=== PATIENT | male | born 1985 | race Caucasian/White ===

== ENCOUNTER → 2023-01-25 | Outpatient (CLI) | payer BC ==
--- NOTE | 2023-01-25 14:41 | CT ---
EXAMINATION TYPE: CT heart w calcium score DATE OF EXAM: 01/25/2023 COMPARISON: None. HISTORY: Screening for cardiovascular disorder. 213.9 CT DLP: 91.5 mGycm Automated exposure control for dose reduction was used. CT CALCIUM SCORING Coronary calcium is a marker for plaque (fatty deposits) in a blood vessel or atherosclerosis (harden ing of the arteries). The presence and amount of calcium detected in a coronary artery by the CT sca n, indicates the presence and amount of atherosclerotic plaque. These calcium deposits appear years before the development of heart disease symptoms such as chest pain and shortness of breath. A calcium score is computed for each of the coronary arteries based upon the volume and density of th e calcium deposits. This can be referred to as your calcified plaque burden. It does not correspond directly to the percentage of narrowing in the artery but does correlate with the severity of the un derlying coronary atherosclerosis. PROCEDURE TECHNIQUE - Prospective Gating was used. Slice thickness: 3mm. Density threshold (HU): 130, Pixel threshold: 3, Algorithm: discrete. RESULTS Region: LM Calcium Score ([place]): 0 Volume (mm3): 0 Mass (g): 0 Region: RCA Calcium Score ([place]): 0 Volume (mm3): 0 Mass (g): 0 Region: LAD Calcium Score ([place]): 6.29 Volume (mm3): 10.54 Mass (g): 3.51 Region: CX Calcium Score ([place]): 0 Volume (mm3): 0 Mass (g): 0 Region: PDA Calcium Score ([place]): 0 Volume (mm3): 0 Mass (g): 0 Total: Calcium Score ([place]): 6.29 Volume (mm3): 10.54 Mass (g): 3.51 Incidental findings: Slightly elevated left hemidiaphragm. Mild left lower lobe and lingular linear s carring and/or atelectasis IMPRESSION: Calcium Score: 1-10 Implication: Minimal identifable plaque. Risk of Coronary Artery Disease: Very unlikely, less than 10%. CALCIUM SCORE IMPLICATION RISK OF C ORONARY ARTERY DISEASE 0 No identifiable plaque Very low, generally less than 5% 1-10 Minimal identifiable plaque Very unlikely, less than 10% 11-100 Definite, at least mild atherosclerotic plaque Mild or m inimal coronary narrowings likely 101-400 Definite, at least moderate atherosclerotic plaque Mild coronary ar laure disease highly likely, significant narrowing possible 401 or Higher Extensive atherosclerotic plaque High lik elihood of at least one significant coronary narrowing
== END | disposition home or self-care (01) ==
LOC: RADCTMAIN 13:48
PROVIDERS: ATTEND Family Medicine
DX: I25.10 Atherosclerotic heart disease of native coronary artery without angina pectoris (principal); E78.5 Hyperlipidemia, unspecified
CPT/HCPCS: 75571

== ENCOUNTER 2024-03-13 15:37 | Emergency (ER) | payer BC ==
[2024-03-13 15:41] VITALS: TEMP 97.9
--- NOTE | 2024-03-13 16:00 | ED ---
Chest Pain HPI - General Chief Complaint: Chest Pain Stated Complaint: Chest Pain,Sob Time Seen by Provider: 03/13/24 15:49 Source: patient, RN notes reviewed, old records reviewed Mode of arrival: wheelchair Limitations: no limitations - History of Present Illness Initial Comments: This is a 38-year-old male to ER for evaluation of chest pain today. Patient has persistent chest pain here in the emergency department but no significant chest pain noted here. Patient has no travel history no sick contacts no trauma. No fevers cough or congestion. Patient been having chest pain for 2 days becoming concerning -: days(s) Onset: during rest, during exertion Pain Location: substernal, left chest Pain Radiation: none Severity: moderate Severity scale (1-10): 4 Quality: tightness, heaviness Consistency: constant Improves With: nothing Worsens With: nothing Anginal Symptoms: dyspnea, sense of impending doom Other Symptoms: palpitations Treatments Prior to Arrival: none - Related Data Home Medications Medication Instructions Recorded Confirmed Evolocumab [Repatha Sureclick] 140 mg SQ Q14D 03/13/24 03/13/24 Previous Rx's Medication Instructions Recorded Famotidine [Pepcid] 20 mg PO BID #60 tablet 03/15/24 Omeprazole [PriLOSEC] 20 mg PO AC-BRKFST #30 cap 03/15/24 Allergies Allergy/AdvReac Type Severity Reaction Status Date / Time No Known Allergies Allergy Verified 03/13/24 18:03 Review of Systems ROS Statement: Those systems with pertinent positive or pertinent negative responses have been documented in the HPI. ROS Other: All systems not noted in ROS Statement are negative. EKG Findings - EKG Comments: EKG Findings:: EKG is sinus 81 OK 139 QRS 90 QTc 387 - EKG Results: EKG: interpreted by ROSALVA Past Medical History Past Medical History: Hyperlipidemia History of Any Multi-Drug Resistant Organisms: None Reported Past Surgical History: No Surgical Hx Reported Past Psychological History: No Psychological Hx Reported Smoking Status: Never smoker Past Alcohol Use History: Occasional Past Drug Use History: None Reported General Exam Limitations: no limitations General appearance: alert, in no apparent distress Head exam: Present: atraumatic, normocephalic, normal inspection Eye exam: Present: normal appearance, PERRL, EOMI. Absent: scleral icterus, conjunctival injection, periorbital swelling ENT exam: Present: normal exam, mucous membranes moist Neck exam: Present: normal inspection. Absent: tenderness, meningismus, lymphadenopathy Respiratory exam: Present: normal lung sounds bilaterally. Absent: respiratory distress, wheezes, rales, rhonchi, stridor Cardiovascular Exam: Present: regular rate, normal rhythm, normal heart sounds. Absent: systolic murmur, diastolic murmur, rubs, gallop, clicks GI/Abdominal exam: Present: soft, normal bowel sounds. Absent: distended, tenderness, guarding, rebound, rigid Extremities exam: Present: normal inspection, full ROM, normal capillary refill. Absent: tenderness, pedal edema, joint swelling, calf tenderness Back exam: Present: normal inspection Neurological exam: Present: alert, oriented X3, CN II-XII intact Psychiatric exam: Present: normal affect, normal mood Skin exam: Present: warm, dry, intact, normal color. Absent: rash Course Vital Signs 03/13/24 03/13/24 03/13/24 15:39 15:52 17:41 Temperature 97.9 F Pulse Rate 80 86 88 Respiratory 22 16 16 Rate Blood Pressure 176/112 121/86 154/111 O2 Sat by Pulse 98 97 99 Oximetry 03/13/24 19:00 Temperature Pulse Rate 92 Respiratory 16 Rate Blood Pressure 157/110 O2 Sat by Pulse 97 Oximetry - Reevaluation(s) Reevaluation #1: Medical records reviewed Reevaluation #2: Patient symptoms unchanged Reevaluation #3: Patient informed of results questions answered Reevaluation #4: Was pt. sent in by a medical professional or institution (, PA, LABOR RELATIONS REPRESENTATIVE, urgent care, hospital, or jail...) When possible be specific @ -no Did you speak to anyone other than the patient for history (EMS, parent, family, police, friend...)? What history was obtained from this source @ -no Did you review nursing and triage notes (agree or disagree)? Why? @ -agree Are old charts reviewed (outside hosp., previous admission, EMS record, old EKG, old radiological studies, urgent care reports/EKG's, jail records)? Report findings @ -yes Differential Diagnosis (chest pain, altered mental status, abdominal pain women, abdominal pain men, vaginal bleeding, weakness, fever, dyspnea, syncope, headache, dizziness, GI bleed, back pain, seizure, CVA, palpatations, mental health, musculoskeletal)? @ -prior EKG interpreted by me (3pts min.). @ -yes X-rays interpreted by me (1pt min.). @ -yes negative for acute disease CT interpreted by me (1pt min.). @ -no U/S interpreted by me (1pt. min.). @ -no What testing was considered but not performed or refused? (CT, X-rays, U/S, labs)? Why? @ -none What meds were considered but not given or refused? Why? @ -none Did you discuss the management of the patient with other professionals (professionals i.e. Dr., PA, LABOR RELATIONS REPRESENTATIVE, lab, RT, psych nurse, manager social services, photoresist printer, teacher, youth liaison officer, caseworker protective services)? Give summary @ -no Was smoking cessation discussed for >3mins.? @ -no Was critical care preformed (if so, how long)? @ -no Were there social determinants of health that impacted care today? How? (Homelessness, low income, unemployed, alcoholism, drug addiction, transportation, low edu. Level, literacy, decrease access to med. care, assisted, rehab)? @ -none Was there de-escalation of care discussed even if they declined (Discuss DNR or withdrawal of care, Hospice)? DNR status @ -no What co-morbidities impacted this encounter? (DM, HTN, Smoking, COPD, CAD, Cancer, CVA, ARF, Chemo, Hep., AIDS, mental health diagnosis, sleep apnea, morbid obesity)? @ -none Was patient admitted / discharged? Hospital course, mention meds given and route, prescriptions, significant lab abnormalities, going to OR and other pertinent info. @ - 38 male to ER for evaluation of chest pain. Patient has normal EKG and chest x-ray here in the ER feels well can be discharged home Discharge Undiagnosed new problem with uncertain prognosis? @ -no Drug Therapy requiring intensive monitoring for toxicity (Heparin, Nitro, Insulin, Cardizem)? @ -no Were any procedures done? @ -no Diagnosis/symptom? @ -Chest pain Acute, or Chronic, or Acute on Chronic? @ -Acute Uncomplicated (without systemic symptoms) or Complicated (systemic symptoms)? @ -Complicated Side effects of treatment? @ -no Exacerbation, Progression, or Severe Exacerbation? @ -exacerbation Poses a threat to life or bodily function? How? (Chest pain, [place], [place], pneumonia, PE, COPD, DKA, ARF, appy, cholecystitis, CVA, Diverticulitis, Homicidal, Suicidal, threat to staff... and all critical care pts) @ -yes with chest pain Reevaluation #5: Differential Chest Pain: Stable Angina, Unstable Angina, STEMI, NSTEMI Aortic Dissection, Pneumothorax, Musculoskeletal, Esophageal Spasm GERD, Cholecystitis, Pancreatitis, Zoster, this is not meant to be an all-inclusive list. Chest Pain MDM - MDM 38 male to ER for evaluation of chest pain. Patient has normal EKG and chest x- ray here in the ER feels well can be discharged home Disposition Clinical Impression: Atypical chest pain, Chest pain Disposition: HOME SELF-CARE Condition: Good Instructions (If sedation given, give patient instructions): Chest Pain (ED) Is patient prescribed a controlled substance at d/c from ED?: No Referrals: Leo Olson MD [Primary Care Provider] - 1-2 days Time of Disposition: 18:30
--- NOTE | 2024-03-13 16:42 | XR ---
EXAMINATION TYPE: XR chest 2V DATE OF EXAM: 03/13/2024 4:25 PM CLINICAL INDICATION:Male, 38 years old with history of Chest Pain; COMPARISON: None TECHNIQUE: XR chest 2V Frontal and lateral views of the chest. FINDINGS: Lungs/Pleura: There is no evidence of pleural effusion, focal consolidation, or pneumothorax. Pulmonary vascularity: Unremarkable. Heart/mediastinum: Cardiomediastinal silhouette is unremarkable. Musculoskeletal: No acute osseous pathology. IMPRESSION: No acute cardiopulmonary disease/process.
[2024-03-13 16:52] LABS: Basophils # (A) 0.1 k/uL (0-0.2); Basophils % (A) 1 %; Eosinophils # (A) 0.2 k/uL (0-0.7); Eosinophils % (A) 2 %; HCT 50.5 % (39.0-53.0); HGB 16.5 gm/dL (13.0-17.5); Lymphocytes # (A) 1.7 k/uL (1.0-4.8); Lymphocytes % (A) 22 %; MCH 28.4 pg (25.0-35.0); MCHC 32.6 g/dL (31.0-37.0); MCV 87.1 fL (80.0-100.0); Mean Platelet Volume 7.3; Monocytes # (A) 0.4 k/uL (0-1.0); Monocytes % (A) 5 %; Neutrophils # (A) 5.5 k/uL (1.3-7.7); Neutrophils % (A) 71 %; Platelet Count 202 k/uL (150-450); RBC 5.79 m/uL (4.30-5.90); RDW 13.4 % (11.5-15.5); WBC 7.8 k/uL (3.8-10.6)
[2024-03-13 16:57] VITALS: RESP 16
[2024-03-13 17:02] LABS: ALT 30 U/L (4-49); AST 30 U/L (17-59); African American GFR (CKD) >90 (>60 ml/min/1.73 sqM); Albumin 4.9 g/dL (3.5-5.0); Alkaline Phosphatase 58 U/L (38-126); Anion Gap 7 mmol/L; Blood Urea Nitrogen 13 mg/dL (9-20); Calcium 9.4 mg/dL (8.4-10.2); Carbon Dioxide 27 mmol/L (22-30); Chloride 106 mmol/L (98-107); Glucose 89 mg/dL (74-99); Lipase 120 U/L (23-300); Non-African American GFR(CKD) >90 (>60 ml/min/1.73 sqM); Potassium 4.1 mmol/L (3.5-5.1); Sodium 140 mmol/L (137-145); Total Bilirubin 0.7 mg/dL (0.2-1.3); Total Protein 7.6 g/dL (6.3-8.2)
[2024-03-13 17:09] LABS: INR 1.1 (<1.2); Partial Thromboplastin Time 25.3 sec (22.0-30.0); Prothrombin Time 11.6 sec (10.0-12.5)
[2024-03-13 17:10] LABS: NT-Pro-B-Type Natriuretic Pept <20 pg/mL
[2024-03-13 19:10] VITALS: BP 157/110; PULSE 92
== END 2024-03-13 19:11 | disposition home or self-care (01) ==
LOC: EC 15:37
DX: R07.89 Other chest pain (principal)
CPT/HCPCS: 36415; 71046; 80053; 83690; 83735; 83880; 84484; 85025; 85379; 85610; 85730; 93005; 99285

== ENCOUNTER 2024-03-14 20:44 | Emergency (ER) | payer BC ==
[2024-03-14 21:02] VITALS: TEMP 97.6
[2024-03-14] MEDS: MORPHINE SULFATE 4 MG/ML SYRINGE IV STA (21:43)
[2024-03-14 21:51] LABS: Basophils % (A) 1 %; Eosinophils # (A) 0.1 k/uL (0-0.7); Eosinophils % (A) 2 %; HCT 46.4 % (39.0-53.0); HGB 15.2 gm/dL (13.0-17.5); Lymphocytes # (A) 2.1 k/uL (1.0-4.8); Lymphocytes % (A) 29 %; MCH 28.4 pg (25.0-35.0); MCHC 32.7 g/dL (31.0-37.0); Mean Platelet Volume 7.6; Monocytes # (A) 0.5 k/uL (0-1.0); Monocytes % (A) 7 %; Neutrophils # (A) 4.4 k/uL (1.3-7.7); Neutrophils % (A) 61 %; Platelet Count 191 k/uL (150-450); RBC 5.34 m/uL (4.30-5.90); RDW 13.2 % (11.5-15.5); WBC 7.3 k/uL (3.8-10.6)
[2024-03-14 22:00] LABS: ALT 23 U/L (4-49); AST 26 U/L (17-59); African American GFR (CKD) >90 (>60 ml/min/1.73 sqM); Albumin 4.9 g/dL (3.5-5.0); Alkaline Phosphatase 50 U/L (38-126); Anion Gap 8 mmol/L; Blood Urea Nitrogen 20 mg/dL (9-20); Calcium 9.1 mg/dL (8.4-10.2); Carbon Dioxide 24 mmol/L (22-30); Chloride 106 mmol/L (98-107); Glucose 89 mg/dL (74-99); Lipase 120 U/L (23-300); Magnesium 2.1 mg/dL (1.6-2.3); Non-African American GFR(CKD) >90 (>60 ml/min/1.73 sqM); Potassium 4.2 mmol/L (3.5-5.1); Sodium 138 mmol/L (137-145); Total Bilirubin 0.8 mg/dL (0.2-1.3); Total Protein 7.5 g/dL (6.3-8.2)
[2024-03-14 22:04] LABS: Partial Thromboplastin Time 25.9 sec (22.0-30.0); Prothrombin Time 10.6 sec (10.0-12.5)
--- NOTE | 2024-03-14 23:02 | CT ---
EXAMINATION TYPE: CT chest angio for PE CT DLP: 406.3 mGycm, Automated exposure control for dose reduction was used. DATE OF EXAM: 03/14/2024 9:57 PM COMPARISON: Same day chest x-ray CLINICAL INDICATION:Male, 38 years old with history of chest pain, back pain, short of breath; CP, SO B, Back pain. TECHNIQUE/CONTRAST: CTA scan of the thorax is performed with IV Contrast, patient injected with 100 ml mL of Isovue 370, MIP images are created and reviewed these are created on a separate workstation.. FINDINGS: There is adequate contrast bolus and timing. PULMONARY ARTERIES: There is no evidence for a filling defect within the pulmonary vasculature to sug gest acute pulmonary embolism. Pulmonary trunk is normal in size. Trunk measures 2.6 CM. AORTA: Normal size course and contour. No dissection. HEART: Normal heart size. No appreciable pericardial effusion. LOWER NECK: No significant findings. MEDIASTINUM: No enlarged nodes by CT size criteria. SOFT TISSUES/AXILLA: Unremarkable soft tissues. No axillary adenopathy. LUNGS/ PLEURA: Some linear and minor wispy opacities bilaterally, likely subsegmental atelectatic jocelyne nges. There is no consolidation, pleural effusion, or pneumothorax shown. Couple tiny calcified gran ulomas in the right lung. AIRWAY: Central airways are patent. MUSCULOSKELETAL: No acute osseous abnormality. Mild degenerative changes of the dorsal spine. UPPER ABDOMEN: Possible gastric duodenum versus nondistended appearance posteriorly. Otherwise no acu te or concerning abnormality. Possible small right renal calculus partially seen. IMPRESSION: 1. No evidence of pulmonary embolism. 2. No other acute chest process demonstrated.
[2024-03-14 23:34] VITALS: RESP 18
[2024-03-15 00:52] VITALS: BP 139/90; PULSE 97
--- NOTE | 2024-03-15 01:11 | ED ---
Chest Pain HPI - General Chief Complaint: Chest Pain Stated Complaint: Chest pain, Back pain SOB Source: patient, family Limitations: no limitations - History of Present Illness Initial Comments: 38-year-old male who presents emergency department reporting chest pain. Pain started yesterday morning. He describes a chest pressure which radiates into his neck and back. He has pain between his shoulder blades. He also admits to a sore throat with difficulty breathing. He went to urgent care was swabbed for strep which was negative. He then came to the emergency department last night and had laboratory studies and chest x-ray. Studies were within normal limits. Patient presents again today as he reports his symptoms have continued. He is taking Motrin at home for pain. He denies previous cardiac disease. Patient has had a previous CT of his heart with calcium scoring. He denies history of peptic ulcers. No nausea or vomiting. Denies any abdominal pain. No other alleviating, precipitating or modifying factors - Related Data Home Medications Medication Instructions Recorded Confirmed Evolocumab [Repatha Sureclick] 140 mg SQ Q14D 03/13/24 03/13/24 Previous Rx's Medication Instructions Recorded Famotidine [Pepcid] 20 mg PO BID #60 tablet 03/15/24 Omeprazole [PriLOSEC] 20 mg PO AC-BRKFST #30 cap 03/15/24 Allergies Allergy/AdvReac Type Severity Reaction Status Date / Time No Known Allergies Allergy Verified 03/13/24 18:03 Review of Systems ROS Statement: Those systems with pertinent positive or pertinent negative responses have been documented in the HPI. ROS Other: All systems not noted in ROS Statement are negative. Past Medical History Past Medical History: Hyperlipidemia History of Any Multi-Drug Resistant Organisms: None Reported Past Surgical History: No Surgical Hx Reported Past Psychological History: No Psychological Hx Reported Smoking Status: Never smoker Past Alcohol Use History: Occasional Past Drug Use History: None Reported General Exam Limitations: no limitations General appearance: alert, in no apparent distress Head exam: Present: atraumatic, normocephalic, normal inspection Eye exam: Present: normal appearance, PERRL, EOMI. Absent: scleral icterus, conjunctival injection, periorbital swelling ENT exam: Present: normal exam, mucous membranes moist Neck exam: Present: normal inspection. Absent: tenderness, meningismus, lymphadenopathy Respiratory exam: Present: normal lung sounds bilaterally. Absent: respiratory distress, wheezes, rales, rhonchi, stridor Cardiovascular Exam: Present: regular rate, normal rhythm, normal heart sounds. Absent: systolic murmur, diastolic murmur, rubs, gallop, clicks GI/Abdominal exam: Present: soft, normal bowel sounds. Absent: distended, tenderness, guarding, rebound, rigid Extremities exam: Present: normal inspection, full ROM, normal capillary refill. Absent: tenderness, pedal edema, joint swelling, calf tenderness Back exam: Present: normal inspection Neurological exam: Present: alert, oriented X3, CN II-XII intact Psychiatric exam: Present: normal affect, normal mood Skin exam: Present: warm, dry, intact, normal color. Absent: rash Course Vital Signs 03/14/24 03/14/24 03/15/24 20:57 23:33 00:51 Temperature 97.6 F Pulse Rate 69 76 97 Respiratory 20 18 18 Rate Blood Pressure 164/119 156/110 139/90 O2 Sat by Pulse 100 99 97 Oximetry Chest Pain MDM - MDM Was pt. sent in by a medical professional or institution (, PA, CONTACT REPRESENTATIVE, urgent care, hospital, or residential...) When possible be specific @ -No Did you speak to anyone other than the patient for history (EMS, parent, family, police, friend...)? What history was obtained from this source @ -I spoke with the patient's for history Did you review nursing and triage notes (agree or disagree)? Why? @ -I reviewed and agree with nursing and triage notes Were old charts reviewed (outside hosp., previous admission, EMS record, old EKG, old radiological studies, urgent care reports/EKG's, residential records)? Report findings @ -I reviewed the ED visit from yesterday where patient had chest x-ray and laboratory studies performed Differential Diagnosis (chest pain, altered mental status, abdominal pain women, abdominal pain men, vaginal bleeding, weakness, fever, dyspnea, syncope, headache, dizziness, GI bleed, back pain, seizure, CVA, palpatations, mental health, musculoskeletal)? @ -Differential Chest Pain: Stable Angina, Unstable Angina, STEMI, NSTEMI Aortic Dissection, Pneumothorax, Musculoskeletal, Esophageal Spasm GERD, Cholecystitis, Pancreatitis, Zoster, this is not meant to be an all-inclusive list. EKG interpreted by me (3pts min.). @ -Yes and demonstrates sinus rhythm with a rate of 73. [place] interval 167. QRS 89. QTc of 384. No acute ST segment elevations or depressions X-rays interpreted by me (1pt min.). @ -None done CT interpreted by me (1pt min.). @ -Yes and demonstrates no acute process U/S interpreted by me (1pt. min.). @ -None done What testing was considered but not performed or refused? (CT, X-rays, U/S, labs)? Why? @ -None What meds were considered but not given or refused? Why? @ -None Did you discuss the management of the patient with other professionals (professionals i.e. , PA, CONTACT REPRESENTATIVE, lab, RT, psych nurse, social security assessor, gas station clerk, teacher, community relations officer, casework manager)? Give summary @ -No Was smoking cessation discussed for >3mins.? @ -No Was critical care preformed (if so, how long)? @ -No Were there social determinants of health that impacted care today? How? (Homeles sness, low income, unemployed, alcoholism, drug addiction, transportation, low edu. Level, literacy, decrease access to med. care, prison, rehab)? @ -No Was there de-escalation of care discussed even if they declined (Discuss DNR or withdrawal of care, Hospice)? DNR status @ -No What co-morbidities impacted this encounter? (DM, HTN, Smoking, COPD, CAD, Cancer, CVA, ARF, Chemo, Hep., AIDS, mental health diagnosis, sleep apnea, morbid obesity)? @ -None Was patient admitted / discharged? Hospital course, mention meds given and route, prescriptions, significant lab abnormalities, going to OR and other pertinent info. @ -Upon arrival patient seen and evaluated in room 27. Thorough history and physical exam was performed. IV access was established. Laboratory studies are conducted. Patient goes for CT of the chest as this is his second visit for same complaint. The results are discussed with the patient. I did offer admission however the patient does not want to stay. Recommended Holter monitoring, echo and an EGD for further workup of his symptoms. Patient understood this. He was given written and verbal discharge instructions and discharged home in stable condition Undiagnosed new problem with uncertain prognosis? @ -Yes Drug Therapy requiring intensive monitoring for toxicity (Heparin, Nitro, Insulin, Cardizem)? @ -No Were any procedures done? @ -No Diagnosis/symptom? @ -Acute chest pain Acute, or Chronic, or Acute on Chronic? @ -Acute Uncomplicated (without systemic symptoms) or Complicated (systemic symptoms)? @ -Complicated Side effects of treatment? @ -No Exacerbation, Progression, or Severe Exacerbation? @ -No Poses a threat to life or bodily function? How? (Chest pain, [place], [place], pneumonia, PE, COPD, DKA, ARF, appy, cholecystitis, CVA, Diverticulitis, Homicidal, Suicidal, threat to staff... and all critical care pts) @ -No Disposition Clinical Impression: Chest pain Disposition: HOME SELF-CARE Condition: Fair Instructions (If sedation given, give patient instructions): Chest Pain (ED) Additional Instructions: Please start taking the 2 prescribed medications. Follow-up with Dr. Johnson for echo and stress test. Return for any new or worsening symptoms Prescriptions: Famotidine [Pepcid] 20 mg PO BID #60 tablet Omeprazole [PriLOSEC] 20 mg PO AC-BRKFST #30 cap Is patient prescribed a controlled substance at d/c from ED?: No Referrals: Leo Olson MD [Primary Care Provider] - 1-2 days Ronal Johnson DO [STAFF PHYSICIAN] - 1-2 days Time of Disposition: 01:11
== END 2024-03-15 01:15 | disposition home or self-care (01) ==
LOC: EC 20:44
DX: R07.89 Other chest pain (principal)
CPT/HCPCS: 36415; 93005; 80053; 83690; 83735; 84484; 85025; 85610; 85730; 71275; 99285; 96374; J2270; Q9967

== ENCOUNTER 2025-02-09 06:46 | Day surgery (SDC) | payer BC ==
[2025-02-08 12:08] VITALS: BMI 27.2
[~2025-02-09 06:46] MED LIST: LIDOCAINE 1% (10MG/ML) FOR IV START INTRADERMA PRN
[2025-02-09] MEDS: LACTATED RINGERS 1,000 ML IV SCH (07:14)
[2025-02-09 07:15] VITALS: RESP 16; TEMP 97
[2025-02-09] MEDS: IV FLUID CONTINUATION 1,000 ML IV ONE (07:15)
[2025-02-09] MEDS ORDERED: PROPOFOL 10 MG/ML 20 ML VIAL IV ONE (07:43)
[2025-02-09] MEDS ORDERED: LIDOCAINE 1% INJ 10MG/ML (20 ML MDV) ONE (07:43)
--- NOTE | 2025-02-09 08:10 | P.PCN ---
Date of Procedure: 02/09/25 Procedure(s) Performed: Brief history: Patient is a pleasant 39-year-old male scheduled for an elective upper endoscopy as well as colonoscopy as a part of evaluation of GERD and screening for history of colon polyps. Last colonoscopy was in June 2021 and he was noted to have an adenoma. Procedure performed: Esophagogastroduodenoscopy with biopsy Colonoscopy Preoperative diagnosis: GERD Screening for history of colon polyps Anesthesia: MAC Procedure: After informed consent was obtained from the patient was brought into the endoscopy unit and IV sedation was administered by anesthesia under continuous monitoring. Initially upper endoscopy was done. The Olympus GF 160 video endoscope was inserted inserted into the mouth and esophagus intubated without any difficulty and was gradually advanced into the stomach and duodenum and carefully examined. The bulb and second part of the duodenum appeared normal. The scope was then withdrawn into the stomach adequately insufflated with air and upon careful examination the antrum had patchy region in the prepyloric area which was biopsied. Rest of the body, cardia and fundus appeared normal. The scope was then withdrawn into the esophagus. The GE junction was located at 42 cm to the incisors. It appeared regular with no erythema erosions or ulcerations. Rest of the esophagus appeared normal. Patient tolerated the procedure well. At this time the patient continued to remain sedation. Initial digital rectal examination was normal. Olympus CF 160 video colonoscope was then inserted into the rectum and gradually advanced to the cecum without any difficulty. Careful examination was performed as the scope was gradually being withdrawn. The prep was excellent. The cecum, ascending colon, transverse colon, descending colon, sigmoid colon and rectum appeared normal. Retroflexion was performed in the rectum and small internal hemorrhoids were noted. Patient tolerated the procedure well. Impression: 1. Upper endoscopy revealed antral gastritis but no evidence of esophagitis or peptic ulcer disease 2. Colonoscopy revealed small internal hemorrhoids but no evidence of colorectal neoplasia Recommendations: Findings of this examination were discussed with the patient as well as his family. He was advised to follow the biopsy results. Continue with Prilosec 20 mg daily and follow antireflux measures. Recommend repeat colonoscopy in 5 years because of prior history of colon polyps.
[2025-02-09 08:29] VITALS: BP 133/95; PULSE 73
== END 2025-02-09 08:43 | disposition home or self-care (01) ==
LOC: ORWHC2ENDO 06:46
PROVIDERS: ATTEND Internal Medicine Gastroenterology
DX: Z12.11 Encounter for screening for malignant neoplasm of colon (principal); Z86.0100 Personal history of colon polyps, unspecified; K64.8 Other hemorrhoids; K21.9 Gastro-esophageal reflux disease without esophagitis
CPT/HCPCS: 45378; 43239; J2003; J2704; 88305